=== PATIENT | male | born 1955 | race Caucasian/White ===

== ENCOUNTER 2017-04-22 04:31 | Emergency (ER) | payer OTHER ==
[~2017-04-22 04:31] MED LIST: ASPI325T32 PO; ATEN25TA PO; EZET1TAB16 PO
--- NOTE | 2017-04-22 04:35 | ED.REPORT ---
HPI- Male Date of Service Apr 22, 2017 ED Provider: Dr. Muhammad Pt is a 61 y/o male w/ a hx of R kidney CA s/p R nephrectomy, HTN, UTI, presenting to the ED c/o L flank pain onset 01:30 today. His flank pain woke him up from sleep. The patient has no history of kidney stones but he does have a history of right kidney cancer for which he is s/p right nephrectomy. The patient has been experiencing hematuria recently and was scheduled to see his PCP and Urologist this week for possible MRI. Nursing Notes Stated Complaint: L SIDE KIDNEY PAIN Nursing Notes Reviewed: Yes Allergies: Coded Allergies: Adhesives (Verified Allergy, Intermediate, Rash,Itching,, 04/22/17) Scheduled Aspirin (Aspirin) 325 Mg Tablet. 325 MG PO DAILY Atenolol (Atenolol) 25 Mg Tablet 12.5 MG PO DAILY Ezetimibe/Simvastatin 10-80 mg (Vytorin 10-80 mg) 1 Each Tablet 1 EACH PO DAILY General Time Seen by MD: 04:34 Chief Complaint Flank pain left Hx Obtained From: Patient Arrived By: Walk-in Onset Occurred: 1 - 4 hours ago Symptom Duration: Since onset Location: : Flank left Quality: Painful Severity: Current: Moderate Severity: Maximum: Moderate Past Medical History Past Medical History Hx R kidney CA s/p R nephrectomy CAD and AL s/p stents On Plavix Hypertension Hx pneumonia Hx diverticulitis Hx gastric ulcer GERD Hx GI bleeding Hx UTI Arthritis Past Surgical History R nephrectomy Arthroscopy of R and L knee Cardiac stent Smoking History Former Smoker Social History Alcohol Use: "Social" Drug Use: Denies drug use Other Social History: Ambulatory Status Independent Review of Systems Constitutional: Denies: Chills, Fever Male: Reports Flank pain, Reports Hematuria Complete sys rev & neg: except as marked. Physical Exam Initial Vital Signs Vital Signs (First) Date Time Temp Pulse Resp B/P Pulse Ox O2 Delivery O2 Flow Rate FiO2 04/22/17 04:36 36.2 59 22 148/85 97 Room Air Initial VS: Reviewed, Vital signs normal Head / Eyes: Atraumatic, Normocephalic, PERRL ENT: Mucous membranes moist, Conjunctiva normal, No scleral icterus Neck: Supple, Full range of motion Respiratory: Breath sounds normal, Clear to auscultation, No respiratory distress Cardiovascular: Regular rate & rhythm, Heart sounds normal, Intact distal pulses Extremities: Vascular intact, Neuro intact, No swelling Skin: Warm, Dry, No cyanosis Neurologic: Alert, Oriented, Nonfocal Psychiatric: Mood/affect normal, Behavior normal, Normal thought content General/Constitutional: Awake, Alert, No acute distress, Cooperative, Not toxic appearing Appearance / Presentation: Positive: Uncomfortable Abdomen: Atraumatic, Soft, No guarding, No rebound, No distention Mild mid-left sided abdominal tenderness Back: Full range of motion, Painless range of motion No CVAT Interpretation & Diagnostics Lab Results Interpretation Result Diagram: 04/22/17 0445 04/22/17 0445 Test 04/22/17 04:45 04/22/17 05:40 White Blood Count 9.6th/mm3 (3.8-10.1) Red Blood Count 5.10mil/mm3 (4.40-5.80) Hemoglobin 15.0g/dL (13.8-17.2) Hematocrit 42.8% (41.0-50.0) Mean Corpuscular Volume 83.9fL (81-100) Mean Corpuscular Hemoglobin 29.4pg (27.0-35.0) Mean Corpuscular Hemoglobin Concent 35.0% (32.0-37.0) Red Cell Distribution Width 13.1% (12.3-15.4) Platelet Count 242bil/L (150-400) Neutrophils (%) (Auto) 80.6% (40-74) Lymphocytes (%) (Auto) 11.1% (14-46) Monocytes (%) (Auto) 7.1% (4-12) Eosinophils (%) (Auto) 0.6% (0-5) Basophils (%) (Auto) 0.3% (0-3) Sodium Level 138mEq/L (134-144) Potassium Level 4.6mEq/L (3.5-5.2) Chloride Level 102mEq/L (97-108) Carbon Dioxide Level 22mmol/L (18-29) Blood Urea Nitrogen 22mg/dL (8-27) Creatinine 2.03mg/dL (0.76-1.27) Estimat Glomerular Filtration Rate 36mL/min (>59) Glucose Level 187mg/dL (60-99) Calcium Level 9.0mg/dL (8.5-10.1) Magnesium Level 1.9mg/dL (1.6-2.6) Total Bilirubin 0.3mg/dL (0.0-1.2) Aspartate Amino Transf (AST/SGOT) 26U/L (0-50) Alanine Aminotransferase (ALT/SGPT) 27U/L (0-44) Alkaline Phosphatase 32U/L (25-160) Total Protein 7.1g/dL (6.4-8.4) Albumin 4.1g/dL (3.4-5.0) Hold Torres Top Tube Received (Received) Urine Color Yellow (YELLOW) Urine Appearance Hazy (CLEAR,HAZY) Urine pH 5.5 (5.0-8.0) Urine Specific [place] 1.005 (1.003-1.035) Urine Protein Negativemg/dL (NEG,TRACE) Urine Glucose (UA) Negativemg/dL (NEGATIVE) Urine Ketones Negativemg/dL (NEGATIVE) Urine Occult Blood Large (NEGATIVE) Urine Nitrite Negative (NEGATIVE) Urine Bilirubin Negative (NEGATIVE) Urine Urobilinogen Normalmg/dL (NORMAL) Urine Leukocyte Esterase Trace (NEGATIVE) Urine RBC 11-50/hpf (0-2) Urine WBC 0-5/hpf (0-5) Urine Epithelial Cells Occasional/hpf (NONE-MOD) Urine Crystals None seen (NONE SEEN) Urine Bacteria Few/hpf (NONE-FEW) Urine Hyaline Casts None/lpf (NONE) Urine Granular Casts None seen (NONE SEEN) Urine Waxy Casts None seen (NONE SEEN) Urine Red Blood Cell Casts None seen (NONE SEEN) Urine White Blood Cell Casts None seen (NONE SEEN) Urine Mucus Present (None Seen) Urine Trichomonas None seen (NONE SEEN) Urine Yeast None (NONE SEEN) Urinalysis Comment Urine Culture Reflexed Indicated Lab Results Interpretation: Hematuria, elevated creatinine, elevated nonfasting glucose CT Abd / Pelvis Interpretation CT KUB: Conclusion: 1. Mild left hydroureteronephrosis without calcified ureteral or bladder stone. Findings may relate to a recently passed stone, query hematuria. Right nephrectomy. 2. Normal appendix. No free air or bowel obstruction. Colonic diverticulosis. 3. Mild prostate enlargement. Interpreted by Kai Hernandez MD Study type: Abdominal CT no contrast Interpretation / Wet Read by: Interpret - Radiologist Re-Eval/Medical Decision Med Decision/Clinical Course 61-year-old male who has had a right nephrectomy. He now has developed hematuria for the last couple of days. He had some evaluation done in the primary provider's office. He subsequently developed left flank pain and presented here. He has hematuria and clots without pyuria. CT KUB showed a hydroureter without a definite stone present. It is possible that he passed his stone. It is also possible that he has a bleeding lesion in the kidney with and is passing clots which is causing hydronephrosis. He also has a newly elevated creatinine without elevation of the BUN. He will follow-up with his primary doctor for further evaluation. Re-Evaluation/Progress : Time of Eval: 05:44 Re-Evaluation/Progress Note: Pt rechecked. Discussed labs and imaging. Informed pt of plan for discharge. Pt understands and agrees with plan for discharge. F/U instructions and RTER warnings given. All questions addressed. Counseled Regarding: Diagnosis, Lab results, Need for follow-up, When/why to return to ED Discharge & Departure Impression: Primary Impression: Acute left flank pain Additional Impressions: Hematuria Hydronephrosis Hydronephrosis type: unspecified Qualified Code: N13.30 - Unspecified hydronephrosis Disposition: Home Discharge Condition All VS Reviewed: Yes Condition: Stable Patient Instructions: Renal Colic (ED) Additional Instructions: It appears that the blood in your urine and the pain may have been caused by a stone which is passed. The stone is not evident on the CT scan but there is dilation of the ureter which would be consistent with a recent stone passing. He need to be reevaluated by her primary doctor if her pain persists or if you continue to have blood in your urine. Your creatinine is also elevated a bit and that will need to be rechecked. Drink plenty of fluids and return to the emergency room have significant worsening. Referrals: Manny Mahoney MD (PCP) Scribe Attestation Portions of this note were transcribed by Anton Muse. I, Dr. Muhammad personally performed the history, physical exam and medical decision-making; I reviewed and confirmed the accuracy of the information in the transcribed note. copies to: Manny Mahoney MD, Raheem Good MD Apr 22, 2017 04:35 ANTON MUSE Apr 22, 2017 04:37
[2017-04-22 04:36] VITALS: BP 148/85; PULSE 59; RESP 22; O2SAT 97
[2017-04-22] MEDS ORDERED: 0.9% Sodium Chloride 1,000 ML IV ONE (04:43)
[2017-04-22] MEDS ORDERED: Ondansetron 2 mg/mL 2 mL Inj IV PRN (04:45)
[2017-04-22 04:52] LABS: BASOPHILS % (AUTO) 0.3 % (0-3); EOSINOPHILS % (AUTO) 0.6 % (0-5); MONOCYTES % (AUTO) 7.1 % (4-12); Mean Corpuscular Hemoglobin 29.4 pg (27.0-35.0); Mean Corpuscular Volume 83.9 fL (81-100); NEUTROPHILS % (AUTO) 80.6 % (40-74); Platelet Count 242 bil/L (150-400)
[2017-04-22] MEDS: HYDROmorphone 0.5 mg/0.5 mL iSecure Syringe IVPUSH PRN ×2 (04:56→05:53)
[2017-04-22 05:15] LABS: Magnesium 1.9 mg/dL (1.6-2.6)
[2017-04-22 05:59] LABS: APPEARANCE,URINE HAZY (CLEAR,HAZY); COLOR,URINE YELLOW (YELLOW); OCCULT BLOOD,URINE LARGE (NEGATIVE); PH,URINE 5.5 (5.0-8.0); UROBILINOGEN,URINE NORMAL (NORMAL)
[2017-04-22 06:21] VITALS: BP 117/70; PULSE 60; RESP 16; O2SAT 95
--- NOTE | 2017-04-22 09:20 | DRSVH ---
PROCEDURE: CT KUB ([id number]) INDICATIONS: left flank pain (absent right kidney) TECHNIQUE: Noncontrast 5 mm thick sections acquired from the diaphragms to the symphysis. 5 mm thick coronal an d sagittal reformats were then performed. For radiation dose reduction, the following was used: aut omated exposure control, adjustment of mA and/or kV according to patient size. COMPARISON: [facility], CT, KUB - CT ([facility]), 12/25/2014, 7:59. FINDINGS: Image quality: Good Lung bases: Lung bases are clear. Heart size is normal. Urinary system: The right kidney has been removed.. No kidney stones. There is the suggestion of a m ild left hydronephrosis. There is suggestion of very minimal stranding more than on the previous CT i n 2014. Left ureter is slightly prominent. Bladder wall thickness is normal; no calcified bladder st ones. Prostate mild to moderately enlarged. Other solid organs: Liver and spleen are normal in size. Gallbladder is within normal limits.. Henson creas is normal in contours. No adrenal nodules. Peritoneum and bowel: Unenhanced bowel loops demonstrate normal wall thickness and caliber. No free fluid or air. There is a normal appendix. Multiple diverticula in the sigmoid colon. Slight strandi ng and thickening of fascial plane is consistent with a mild acute sigmoid diverticulitis without donny e air or fluid seen. However ER information shows no elevated white count, hematuria with clots witho ut high area. Therefore this suggestion the finding is thought to not be real. Nodes and vessels: No retroperitoneal or mesenteric adenopathy by size criteria. Aorta and inferior vena cava are normal in caliber. Abdominal wall: No ventral hernias. Pelvis: No free pelvic fluid. No inguinal hernias or adenopathy. Bones: No suspicious bony lesions. No vertebral body compression fractures. IMPRESSION: 1. Slight prominence of left collecting system and stranding no stones in the kidneys ureters or blad imtiaz. Passed stone could cause this appearance. 2. Previous right nephrectomy. 3. Enlarged prostate mild to moderate amount. 4. CT suggestion of very mild sigmoid diverticulitis however this is not supported clinically followi ng discussion with the ER physician. Dictated by: Oliverio Barrera M.D. on 04/22/2017 at 8:53 this report corresponds to the findings of deandre bhakta preliminary NSR report. Approved by: Oliverio Barrera M.D. on 04/22/2017 at 9:18
== END 2017-04-22 06:24 | disposition home or self-care (01) ==
LOC: SED 04:31
DX: N13.30 Unspecified hydronephrosis (principal); R31.9 Hematuria, unspecified; R10.9 Unspecified abdominal pain; I10 Essential (primary) hypertension; I25.10 Atherosclerotic heart disease of native coronary artery without angina pectoris; I25.2 Old myocardial infarction; K21.9 Gastro-esophageal reflux disease without esophagitis; Z87.891 Personal history of nicotine dependence; Z79.82 Long term (current) use of aspirin; Z79.899 Other long term (current) drug therapy
CPT/HCPCS: 36415; 74176; 80053; 81000; 83735; 85025; 87086; 96361; 96374; 96375; 99285; J1170; J2405; J7030

== ENCOUNTER → 2017-05-03 | Day surgery (SDC) | payer OTHER ==
[2017-05-03] VITALS (10 sets, daily range): BP systolic 103–133; BP diastolic 58–86; PULSE 59–76; RESP 12–17; O2SAT 97–100
[~2017-05-03] VITALS: Ht 167.6 cm; Wt 97.7 kg
[~2017-05-03] MED LIST changes: +ASPI-973 PO; -ASPI325T32 PO; +Acetaminophen IV 1,000 MG in IV Premix 1 EACH IV ONE; +Atropine 0.4 mg/mL Inj IVPUSH PRN; +CeFAZolin 2 Gm/50 mL D5W Duplex Bag IV ONE; +CeFAZolin Inj 2 GM in IV Premix 1 EACH IV ONE; +EPHEDrine Sulfate 50 mg/mL Inj IVPUSH PRN; +GARL1TAB2 PO; +HYDROmorphone 1 mg/mL Inj IVPUSH PRN; +LISI-571 PO; +Labetalol 5 mg/mL 20 mL Inj IV PRN; +Lactated Ringer's 1,000 ML IV ONE; +Lactated Ringer's 1,000 ML IV SCH; +Lactated Ringer's 500 ML IV PRN; +MULT-1018 PO; +MetoCLOpramide 5 mg/mL 2 mL Inj IVPUSH PRN; +Ondansetron 2 mg/mL 2 mL Inj IVPUSH PRN; +Ondansetron 2 mg/mL 2 mL Inj ONE; +Phenylephrine 10,000 mCg/mL Inj IVPUSH PRN; +Propofol 10,000 mCg/mL 20 mL Inj ONE; +RANI75TA21 PO; +fentaNYL-PF 50 mCg/mL 2 mL Inj IVPUSH PRN; +fentaNYL-PF 50 mCg/mL 2 mL Inj ONE
--- NOTE | 2017-05-03 12:31 | PCM.HPANE ---
Patient Data Date of Service: May 03, 2017 Surgeon Admitting Provider: Attending Provider:Amira Martinez MD Primary Care Physician:Manny Mahoney MD Other Provider:Stephanie Hodge Anesthesia Reason for Visit Gross Hematuria Ht/WT & BMI Height (Feet): 5 Height (Inches): 6.00 Weight (Kilograms): 97.7 Body Mass Index 34.00 Allergies Coded Allergies: Adhesives (Verified Allergy, Intermediate, Rash,Itching,, 04/22/17) Past Anesthesia History Anesthesia History: Denies:: Abnormal Airway, Anesthesia Reactions, Difficult Intubation, Fam Anesthesia Reaction, Fam Malignant Hypertherm, Malignant Hyperthermia Diabetes History Hx Diabetes?: No MRSA MRSA: No Medications Blood Thinner: Aspirin Hypertension Medication: Yes Home Meds Incl Beta Arthur: Yes (metropolol) Date Beta Arthur Taken: May 02, 2017 Time Beta Arthur Taken: 2129 Reported Medications Ranitidine (Zantac OTC)75 Mg Fuqsfx88 Mg PO DAILY #1 PKG Ref 0 04/29/17 Ezetimibe/Simvastatin 10-80 mg (Vytorin 10-80 mg)1 Each Tablet1 Tablet PO DAILY 04/29/17 Multivitamin (Multi Vitamin Daily)1 Each Tablet1 Each PO DAILY 30 Days Ref 0 04/29/17 Aspirin 81 Mg Vxyxki02 Mg PO DAILY Ref 0 04/29/17 Lisinopril 5 Mg Tablet5 Mg PO DAILY #30 TABLET Ref 0 04/29/17 Garlic 1 Each Tablet1 Each PO DAILY 04/29/17 Atenolol 25 Mg Pqgigx85.5 Mg PO DAILY #30 TABLET Ref 0 04/29/17 Discontinued Reported Medications Atenolol 25 Mg Capxwz32.5 Mg PO DAILY #30 TABLET Ref 0 04/27/14 Ezetimibe/Simvastatin 10-80 mg (Vytorin 10-80 mg)1 Each Tablet1 Each PO DAILY 04/27/14 Aspirin 325 Mg Tablet.dr325 Mg PO DAILY #1 BOTTLE Ref 0 04/27/14 History History of ENT Problems?: No HEENT History: Positive for:: Hearing Problem Denies:: Abnormal Airway Cataracts Difficult Intubation Dysphagia Sinus Problem Denture Type: None Teeth Condition: Within Normal Limits Hx of Heart Problems?: Yes Cardiovascular History: Positive for:: Cardiac Surgery (prior hx of stents ) Chest Pain Coronary Artery Disease Edema Hypertension Denies:: AICD Atrial Fibrillation Congestive Heart Failure Heart Murmur Irregular Heartbeat Pacemaker Thrombophlebitis Valvular Heart Disease Hx of Respiratory Problem?: Yes Respiratory History: Positive for:: Cough Dyspnea Pneumonia Denies:: Asthma COPD Chest Surgery Emphysema Hemoptysis Oxygen Administration Tuberculosis Use of C-PAP Machine Hx Neurologic Problems?: Yes Neurological History: Positive for:: Dizziness (Recently) Headaches Denies:: Alzheimer's Disease CVA Dementia Parkinson's Disease Seizures Hx of GI Problems?: Yes Hx of Problems?: Yes Genitourinary History: Denies:: HX of Hemodialysis Kidney Stones Urinary Tract Infection HX of Peritoneal Dialysis: No Other Pertinent History: gross hematuria current admission problem. Pt has hx of renal ca with right nephrectomy Male Hx: Denies:: Prostate Problems Scrotal Mass Testicular Surgery Skin History: Denies:: History Skin Disorders? Pressure Ulcers Hx Musculoskeletal Problems?: Yes Musculoskeletal History: Positive for:: Back Injury (Lower back pain ( workplace injury)) Denies:: Joint Replacement Musculoskeletal Trauma (prior knee surgeries, foot pain) Hx of Psycho/Social Problems?: No Psycho Social History: Denies:: Anxiety Bipolar Disorder Hx Depression Suicide Attempt Hx Surgeries?: Yes (right nephrectomy, knee surgery) Hx Any Other Health Problems?: Yes Other History: Positive for:: Cancer (right kidney) Hospitalization (Cardiac stent) Denies:: Endocrine Disease Thyroid Disease History Blood Transfusions: Denies:: Blood Transfuse Reaction Blood Transfusions Hx Diabetes: No Hx Alcohol Use: Yes (once a month)Hx Substance Use: No Smoking Status: Former Smoker Have You Smoked inLast 12 mo: No Stop/Bang P-Blood Pressure: treated: Yes B- Body Mass Index > 35 kg/m2: Yes A- Age over 50: Yes N- Neck Large Circumference: No G- Gender Male: Yes Risk Assessment Category Category 1A: Patient has history of documented sleep apnea, and HAS NOT received any narcotic, sedative or anesthesia administration during this stay. Category 1B: Patient has history of documented sleep apnea, and HAS received any narcotic , sedative or anesthesia administration during this stay Category 2: Patient has SUSPECTED Obstructive Sleep Apnea, and HAS received any narcotic , sedative or anesthesia administration during this stay. Category 3: Patient has SUSPECTED Obstructive Sleep Apnea and HAS NOT received narcotic, sedative or anesthesia administration during this stay. Category 4: Outpatient in Procedural Areas with known sleep apnea or who screen positive for High Risk via the STOP/BANG questionnaire. Exam Exam Vital Signs Vital Signs Date Time Temp Pulse Resp B/P Pulse Ox O2 Delivery O2 Flow Rate FiO2 05/03/17 11:17 36.6 60 17 131/74 97 Room Air General Appearance: Alert, Oriented X3 HEENT/AIRWAY: MP 2 Lungs: Clear to Auscultation Heart: Regular Rate/Rhythm Meds/Labs/Diagnostics Admission Meds Current Medications Lactated Ringer's (Lr) 1,000 ml @ ud STK-MED ONCE IV Last administered on 05/03t 11:16; Start 05/03/17 at 11:16; Stop 05/03/17 at 11:17; Status DC Plan Impression Patient chart reviewed, patient interviewed and anesthestic plan with risks, benefits, and alternatives discussed, and informed consent obtained. ASA Physical Status: ASA2 Plus Emergency Anesthetic Plan: GA Bene/Risks/Altern/Consents: Yes HP Complete Prior to Induction: Yes Young Casiano MD May 03, 2017 12:31
--- NOTE | 2017-05-03 13:52 | PCM.ANEP1 ---
Post Anesthesia PACU Phase 1 Assessment Date of Service: May 03, 2017 Vital Signs Vital Signs Date Time Temp Pulse Resp B/P Pulse Ox O2 Delivery O2 Flow Rate FiO2 05/03/17 13:40 75 13 103/60 97 Room Air 05/03/17 13:35 36.6 73 13 114/63 100 Room Air 05/03/17 13:30 73 12 132/86 99 Room Air 05/03/17 13:28 36.8 76 12 133/80 100 Simple Mask 8 05/03/17 11:17 36.6 60 17 131/74 97 Room Air Anesthetic Administered: GA Level of Alertness: Awake, talking EDDY's with Equal Strength: Yes Pain: No Nausea or Vomiting: No CV Function & Hydration Stable: Yes Airway Device: Oxygen Delivery: Simple Mask Lungs: Normal Air Movement PACU Phase 2 Assessment Complications: No Follow up Care: No Patient Instructions Provided: N/A Young Casiaon MD May 03, 2017 13:52
--- NOTE | 2017-05-03 16:26 | DRSVH ---
PROCEDURE: X-RAY RETROGRADE UROGRAPHY INDICATIONS: C-ARM ASSISTED LEFT URETEROSCOPY TECHNIQUE: Multiple intra-operative images acquired by the Urology service. COMPARISON: [facility], CT, CT KUB, 04/22/2017, 5:03. FINDINGS: No lesion found within the urothelium. IMPRESSION: No urothelial mass or ureteral calculus found. Dictated by: Young Sierra M.D. on 05/03/2017 at 16:22 Approved by: Young Sierra M.D. on 05/03/2017 at 16:25
--- NOTE | 2017-05-04 01:23 | OP ---
[address] [address] OPERATIVE REPORT PATIENT: CHIQUI CASTRO : 1955 MR#: [id number] ADMIT: 05/03/2017 JOB ID: [id number] DATE OF SURGERY: PREOPERATIVE DIAGNOSIS(ES): 1. Intermittent gross hematuria. 2. Solitary left kidney (status post right radical nephrectomy for renal cell carcinoma). 3. Chronic kidney disease. POSTOPERATIVE DIAGNOSIS(ES): 1. Intermittent gross hematuria. 2. Solitary left kidney (status post right radical nephrectomy for renal cell carcinoma). 3. Chronic kidney disease. 4. Benign prostatic hypertrophy. PROCEDURE PERFORMED: Cystoscopy, left retrograde pyelogram. SURGEON: Amira Martinez MD. ANESTHESIOLOGIST: Young Casiano MD. ANESTHESIA: General. FINDINGS: Urethra normal. External sphincter intact. Prostate 4-4.5 cm length with moderately obstructing trilobar hyperplasia. Bilateral orifices were intact. The left orifice had visibly clear efflux. There is 1+ trabeculation. No stone, tumor, foreign body visualized. The left collecting system was delicate without hydronephrosis or filling defect. There was mild distal ureteral dilation and associated J-hooking explained by elevated bladder neck due to enlarged prostate. PROCEDURE SUMMARY: The patient was positioned in supine and was administered general anesthesia. He was then repositioned in semi-lithotomy, and the lower abdomen, genitalia and groin were prepped and draped in sterile fashion. The 22-Malaysian panendoscope was then passed to the lower urinary tract with the findings as described above. Next, 8-Malaysian cone-tipped catheter was placed at the left ureteral meatus. Retrograde pyelography was performed with findings as described above. The cone-tip was then removed and a 0.35 Glidewire was advanced into the left collecting system under direct fluoroscopic guidance. Over this, a 5-Malaysian Pollack catheter was positioned. The wire was then removed and intrarenal left pyelography was performed, again with findings as described above. There was excellent and prompt post drainage films. All instrumentation was then removed from the upper tract. The bladder was then drained completely and all instrumentation was removed. The patient was then repositioned in supine, was awakened, [place], transported to recovery in stable condition.
== END | disposition home or self-care (01) ==
LOC: SAS 10:41
PROVIDERS: ATTEND Specialist
DX: R31.0 Gross hematuria (principal); N18.9 Chronic kidney disease, unspecified; N40.0 Benign prostatic hyperplasia without lower urinary tract symptoms; Z85.528 Personal history of other malignant neoplasm of kidney; Z90.5 Acquired absence of kidney; I25.10 Atherosclerotic heart disease of native coronary artery without angina pectoris; I12.9 Hypertensive chronic kidney disease with stage 1 through stage 4 chronic kidney disease, or unspecified chronic kidney disease; E78.5 Hyperlipidemia, unspecified; Z87.891 Personal history of nicotine dependence; Z95.5 Presence of coronary angioplasty implant and graft; Z79.01 Long term (current) use of anticoagulants; Z79.82 Long term (current) use of aspirin
CPT/HCPCS: 52005; 74420; J0690; J2405; J2704; J3010; J7120; Q9967